=== PATIENT | female | born 1935 | race Caucasian/White ===

== ENCOUNTER 2019-06-06 09:38 | Outpatient (CLI) | payer MEDICARE ==
--- NOTE | 2019-06-06 15:26 | PET ---
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 Evaluation was performed on a [employer] workstation. FINDINGS: NECK: Hypermetabolic activity is seen in the right neck in the region of the right thyroid lobe with a max SUV value of 31.2. Evaluation for a mass in this location is limited without IV contrast and secondary to streak artifact from the patient's left shoulder prosthesis. No other areas of hypermeta bolic activity CHEST: Soft tissue density is seen in the mediastinum extending into the left hilar region. There is collapse of the left lower lobe of the lung. These areas of soft tissue density in the mediastinum, left hilar region and left lower lobe are hypermetabolic with a max SUV value ranging from 2.9-3.0. T he activity is less than liver but more than blood pool. There is a moderate left pleural effusion which does not demonstrate hypermetabolic activity. ABDOMEN/PELVIS: No areas of hypermetabolic activity SKELETON: No areas of hypermetabolic activity CT images used for attenuation correction show gallstones in the gallbladder.. IMPRESSION: 1. Hypermetabolic activity in the mediastinum, left hilar region, and left lower lobe of the lungs. T his has a Deauville score of 3. 2. Hypermetabolic activity in the right thyroid lobe. A thyroid ultrasound is recommended to evaluate for a mass in this location.
== END 2019-06-06 09:39 | disposition home or self-care (01) ==
LOC: PET 09:38
PROVIDERS: ATTEND Internal Medicine Hematology & Oncology
DX: C85.12 Unspecified B-cell lymphoma, intrathoracic lymph nodes (principal)
CPT/HCPCS: 78815; A9552

== ENCOUNTER 2019-08-22 08:33 | Outpatient (CLI) | payer MEDICARE ==
--- NOTE | 2019-08-22 11:40 | PET ---
PET CT: HISTORY: An 84-year-old female with diffuse large B cell lymphoma. Exam requested for subsequent evaluation af ter last chemotherapy on 08/09/2019. The patient also has a history of right breast cancer in 2005. COMPARISON: PET CT dated 06/06/2019. TECHNIQUE: PET scanning with CT attenuation correction was performed from the vertex through the proximal thighs following the intravenous administration of 12 millicuries F18 fluorodeoxyglucose in the left hand. FINDINGS: Focal intense hypermetabolic activity in the region of the right thyroid lobe is again seen with a st able SUV of 31. No rajni hypermetabolism is seen in the remainder of the neck, mediastinum, hilar regions, axillae, a bdomen, pelvis or inguinal regions. No hypermetabolic liver, adrenal or skeletal lesions are seen. There is physiologic activity in the brain and GI and tracts. No hypermetabolic activity is seen in the 2 cm right adrenal nodule (SUV 1.6). This demonstrates atte nuation values of -7.9 Hounsfield units and is consistent with a benign adenoma. CT scan used for attenuation correction demonstrates interval reduction in the size of the left sided pleural effusion since the last study. No right sided pleural effusion or ascites is seen. Cholelith iasis, nonobstructing tiny bilateral renal calculi and intramuscular lipoma in the left external obli que muscle of the lower anterior abdominal wall are again seen. Since the uptake in the region of the right thyroid gland is markedly increased compared to the liver , this would correspond to a Deauville score of 5. IMPRESSION: 1. Stable hypermetabolic activity in the right thyroid lobe. 2. Interval reduction in the size of the left pleural effusion since 06/06/2019. POS: [facility]
== END 2019-08-22 08:34 | disposition home or self-care (01) ==
LOC: PET 08:33
PROVIDERS: ATTEND Internal Medicine Hematology & Oncology
DX: C83.32 Diffuse large B-cell lymphoma, intrathoracic lymph nodes (principal); J90 Pleural effusion, not elsewhere classified
CPT/HCPCS: 78815; A9552

== ENCOUNTER 2019-11-08 08:12 | Outpatient (CLI) | payer MEDICARE ==
--- NOTE | 2019-11-08 14:42 | PET ---
Exam: PET scan with CT attenuation correction COMPARISON: 08/22/2019, 06/06/2019 HISTORY: Diffuse large B-cell lymphoma, intrathoracic lymphoma. History of papillary thyroid cancer TECHNIQUE: PET scan with CT attenuation correction was performed from the base of the brain to the pr oximal thighs following intravenous administration of 11.9 mCi of [id number]. FINDINGS: Head and neck: Previously noted hypermetabolic activity in the right thyroid lobe is no longer eviden t. No significant hypermetabolic activity in the head and neck CHEST: There is no abnormal FDG localization in the mediastinum, hilum or lung parenchyma. CT used for attenuation correction demonstrates a decreasing but still present left-sided pleural eff usion. There are patchy lung parenchymal opacities which may represent areas of nonspecific infiltrate/edema. There does not appear to be any definite consolidation with air bronchograms. The p reviously noted left lower lobe consolidation has improved. No abnormal FDG avidity. Abdomen pelvis: There is no abnormal FDG localization. CT used for attenuation correction demonstrate s gallstones. There is calcification of the left adrenal gland. Stable right adrenal adenoma. There is a lipoma lateral to the left abdominal rectus muscle, unchanged. No hypermetabolic activity. Osseous structures: No evidence of hypermetabolic activity. IMPRESSION: 1. Interval absence of FDG avidity involving the right thyroid lobe. 2. No abnormal FDG localization of the chest, abdomen and pelvis. 3. Decreasing left-sided pleural effusion. Improved aeration left lower lobe. Transcribed Date/Time: 11/08/2019 2:53 PM
== END 2019-11-08 08:13 | disposition home or self-care (01) ==
LOC: PET 08:12
PROVIDERS: ATTEND Internal Medicine Hematology & Oncology
DX: C83.32 Diffuse large B-cell lymphoma, intrathoracic lymph nodes (principal); J90 Pleural effusion, not elsewhere classified
CPT/HCPCS: 78815; A9552

== ENCOUNTER 2020-02-24 09:33 | Outpatient (CLI) | payer MEDICARE ==
--- NOTE | 2020-02-24 10:58 | CT ---
Exam: Chest CT with contrast Abdomen CT with contrast Pelvic CT with contrast HISTORY: Diffuse large B-cell lymphoma. CORRELATION: PET imaging 11/08/2019. COMPARISON: None. FINDINGS: Chest CT: Mediastinum: No mass, lymphadenopathy or hematoma. Lower neck and axilla: No lymphadenopathy. Aorta: Normal caliber aorta. Atherosclerosis. No periaortic fat stranding. Heart: Normal heart size. No significant pericardial fluid. Calcification of the mitral annulus. Trachea and central bronchi: Patent. Pleural spaces: No pleural effusion. Right lung: Dependent atelectatic changes. Areas of scarring in the middle lobe are noted. Left lung:Scarring atelectasis in the left upper lobe and left lower lobe. Pneumothorax: None. Abdomen CT: Gallbladder: Cholelithiasis, without evidence of cholecystitisPortal vein: Patent Liver: Appropriate enhancement. Spleen: Appropriate enhancement Pancreas: Appropriate enhancement Adrenal glands: Redemonstration of a right adrenal nodule, unchanged in size measuring 2.2 x 1.7 cm. This lesion has been previously documented to be an adenoma. Stable calcification of the left adrenal gland. Lymphadenopathy: No gastrohepatic, retrocrural or periportal lymphadenopathy. Kidneys: Symmetric enhancement. Nonobstructing calculus in the right renal pelvis. Bilaterally no obs tructive uropathy. Mesentery: No mass, lymphadenopathy, free air or free fluid. Alimentary canal: No evidence of bowel obstruction. Normal ileocecal junction. Normal caliber appendi x. Diverticulosis, without evidence of diverticulitis. Abdominal wall: There is a left-sided lipoma just superficial to the lateral abdominal rectus muscles . Pelvis CT: No pelvic mass, lymphadenopathy, free air or free fluid. Uterus and urinary bladder have a normal armida earance. Presacral fat is preserved. Osseous structures:No lytic or blastic lesions. There are bilateral pars defects at L5 with grade 1 a nterolisthesis of L5 upon S1. Remote proximal right humeral fracture. IMPRESSION: 1. No evidence of lymphadenopathy in the chest, abdomen, or pelvis. 2. Benign adenoma in the right adrenal gland. Stable calcification left adrenal gland. 3. Cholelithiasis without evidence of cholecystitis. Transcribed Date/Time: 02/24/2020 11:12 AM
== END 2020-02-24 09:34 | disposition home or self-care (01) ==
LOC: SCSCT 09:33
PROVIDERS: ATTEND Internal Medicine Hematology & Oncology
DX: C83.32 Diffuse large B-cell lymphoma, intrathoracic lymph nodes (principal); K80.20 Calculus of gallbladder without cholecystitis without obstruction; D35.01 Benign neoplasm of right adrenal gland; E27.8 Other specified disorders of adrenal gland
CPT/HCPCS: 71260; 74177; 82565

== ENCOUNTER 2020-04-16 13:08 | Outpatient (CLI) | payer MEDICARE ==
--- NOTE | 2020-04-16 14:38 | NM ---
Nuclear medicine radioiodine thyroid radioablation therapy: 04/16/2020 HISTORY: 84-year-old female with papillary thyroid cancer, status post surgical resection total thyroidectomy. Status post Thyrogen injections. TECHNIQUE: [address] Murillo. Radiation precautions were discussed. Patient was given opportunity to ask questions. There are no qu estions. Patient was given 96.5 mCi of I-131 pill by mouth. IMPRESSION: Radioiodine radioablation therapy with 96.5 mCi of I-131.
== END 2020-04-16 13:09 | disposition home or self-care (01) ==
LOC: NM 13:08
PROVIDERS: ATTEND Internal Medicine Endocrinology, Diabetes & Metabolism
DX: C73 Malignant neoplasm of thyroid gland (principal)
CPT/HCPCS: 79005; A9517 ×2

== ENCOUNTER 2020-05-20 13:33 | Outpatient (CLI) | payer MEDICARE ==
--- NOTE | 2020-05-21 11:48 | CT ---
Exam: Lumbar spine CT without contrast HISTORY: Severe left hip pain, radiating down the left leg x6 weeks. COMPARISON: None. FINDINGS: CT evidence of cholelithiasis. Right adrenal mass with attenuation coefficient of 6 Hounsfield units compatible with a 2.1 x 1.9 cm adenoma. Nonspecific calcification of the left adrenal gland. Bilaterally, no evidence of obstructive uropathy. Upper normal left periaortic lymph nodes. Atherosclerosis of a nonaneurysmal aorta. There is diffuse bone demineralization. Vacuum disc phenomenon at T11-T12, T12-L1, L1-L2 and L5-S1. Spondylolysis at L5 with associated 6 mm of anterolisthesis of L5 upon S1. Throughout the lumbar spine, vertebral body heights are maintained. There is no lumbar spine fracture . Limited evaluation of the contents of the central spinal canal and neural foramina due to technique. Visualized sacrum and bony pelvis are intact. Presacral fat is preserved. Visualized sacral ala are p reserved. T11-T12: Vacuum disc phenomenon. Mild central canal stenosis secondary to central/left subarticular d isc herniation. Patent neural foramina. T12-L1: Vacuum disc phenomenon. Mild central canal stenosis. L1-L2: Vacuum disc phenomenon. No significant central canal stenosis. Mild bilateral neural femoral n arrowing. L2-L3: No significant posterior disc abnormality. No significant central canal stenosis. Mild bilater al neural foraminal narrowing. L3-L4: Broad-based disc bulge, ligamentum flavum thickening and facet hypertrophy result in mild cent ral canal stenosis. Mild bilateral neural foraminal narrowing. L4-L5: Broad-based disc bulge, mild ligamentum flavum thickening and facet hypertrophy result in mild central canal stenosis. Mild bilateral neural foraminal narrowing. L5-S1: Broad-based disc bulge abuts the thecal sac. There is no significant central canal stenosis. M ild to moderate right and moderate to severe left neural foraminal narrowing. IMPRESSION: 1. No fracture. 2. Multilevel degenerative changes of the lumbar spine as detailed above. 3. Bilateral pars defects at L5 with associated grade 1 anterolisthesis of L5 upon S1. Transcribed Date/Time: 05/21/2020 11:56 AM
== END 2020-05-20 13:34 | disposition home or self-care (01) ==
LOC: SCSCT 13:33
PROVIDERS: ATTEND Internal Medicine
DX: M54.5 Low back pain (principal); M43.17 Spondylolisthesis, lumbosacral region; M47.816 Spondylosis without myelopathy or radiculopathy, lumbar region
CPT/HCPCS: 72131